=== PATIENT | male | born 1990 | race Two or more races ===

== ENCOUNTER 2024-09-04 14:40 | Emergency (ER) | payer SELFPAY ==
[~2024-09-04] VITALS: Ht 180.3 cm; Wt 82.0 kg
[2024-09-04 14:41] VITALS: TEMP 98.4; O2SAT 100
[2024-09-04 15:38] LABS: BASOPHILS % 0.2 % (0.0-2.0); EOSINOPHILS % 0.1 % (0.0-5.0); HEMATOCRIT. 47.8 % (42.0-52.0); HEMOGLOBIN. 16.3 g/dL (14.0-18.0); MEAN CORPUSCULAR HEMOGLOBIN 30.9 pg (28.0-32.0); MEAN CORPUSCULAR VOLUME 90.8 fL (80.0-94.0); MEAN PLATELET VOLUME 8.5 fl (7.4-10.4); NEUTROPHILS % 81.7 % (40.0-76.0); PLATELET 313 x1000/uL (130-400); RED BLOOD CELL COUNT 5.26 mill/uL (4.7-6.1); RED CELL DISTRIBUTION WIDTH 12.4 % (11.6-14.6)
[2024-09-04 15:44] LABS: CARBON DIOXIDE 23 mEq/L (21-32); CHLORIDE 107 mEq/L (98-107); POTASSIUM 3.5 mEq/L (3.5-5.1); SODIUM 143 mEq/L (136-145)
[2024-09-04 15:45] VITALS: BP 174/105; PULSE 104; RESP 16
[2024-09-04 15:45] LABS: CALCIUM 9.7 mg/dL (8.7-10.4)
[2024-09-04] MEDS: IBUPROFEN 400MG TABLET PO ONE (15:45)
[2024-09-04 15:50] LABS: CREATININE 1.1 mg/dL (0.6-1.3); GLUCOSE 138 mg/dL (70-105); TROPONIN I HIGH SENSITIVITY 6 ng/L (3.0-53); UREA NITROGEN BLOOD 16 mg/dL (9-23)
[2024-09-04 15:51] LABS: ALANINE AMINOTRANSFERASE 18 IU/L (10-49); ASPARTATE AMINOTRANSFERASE 21 IU/L (<34)
[2024-09-04 15:52] LABS: ALBUMIN 4.8 g/dL (3.2-4.8); BILIRUBIN DIRECT 0.4 mg/dL (<=3.0); BILIRUBIN TOTAL 1.1 mg/dL (0.1-1.0)
[2024-09-04] MEDS ORDERED: DIPH25CA83 MT (16:14)
== END 2024-09-04 16:42 | disposition home or self-care (01) ==
LOC: ER 14:40
DX: F41.9 Anxiety disorder, unspecified (principal); I10 Essential (primary) hypertension
CPT/HCPCS: 36415; 71046; 80053; 80076; 84484; 85025; 93005; 99285